=== PATIENT | female | born 1955 | race Hispanic/Latino ===

== ENCOUNTER 2017-05-02 13:19 | Emergency (ER) | payer OTHER ==
[2017-05-02 13:26] VITALS: BP 135/79; PULSE 72; RESP 18; TEMP 98.2; O2SAT 100
--- NOTE | 2017-05-02 14:00 | ED PDOC ---
HPI: General Adult Time Seen by Provider: 05/02/17 13:25 Chief Complaint (Nursing): Back Pain Chief Complaint (Provider): low back pain, weakness of legs History Per: Patient, EMS Additional Complaint(s): 61-year-old female with history of lower back pain presents to emergency Department with pain to lower back and weakness of bilateral lower extremities 1 week. Patient states she is prescribed Xanax daily for muscle spasms but has been off of this medication for 1 week. She has had multiple surgeries to lower back in the past to correct cord compression. She states she has fecal incontinence at baseline daily for the past several years but today presents with new onset weakness to legs. Patient tried to stand up this morning and states that her knees buckled on her. After her knees buckled she was unable to stand and walk. She does state she has had difficulty walking for the past week but it got worse today. Patient is not sure if her current symptoms are related to the fact that she has not taken her Xanax in 1 week. She normally takes a 2 mg tablet once per day. She denies any urinary incontinence or other urinary symptoms. No fever or chills. Past Medical History Reviewed: Historical Data, Nursing Documentation, Vital Signs Vital Signs: Last Vital Signs Temp 98.2 F 05/02/17 13:21 Pulse 72 05/02/17 13:21 Resp 18 05/02/17 13:21 BP 135/79 05/02/17 13:21 Pulse Ox 100 05/02/17 15:11 - Medical History PMH: No Chronic Diseases - Surgical History Surgical History: Back Surgery (several back surgeries in the past) - Family History Family History: States: No Known Family Hx - Home Medications Home Medications: Ambulatory Orders Medication Instructions Recorded ALPRAZolam [Xanax] 2 mg PO DAILY #4 tab 05/02/17 Nitrofurantoin Macrocrystals 100 mg PO BID #14 tab 05/02/17 [Macrobid] - Allergies Allergies/Adverse Reactions: Allergies Allergy/AdvReac Type Severity Reaction Status Date / Time meperidine [From Demerol] Allergy ANAPHYLAXIS Verified 05/02/17 13:21 Review of Systems ROS Statement: Except As Marked, All Systems Reviewed And Found Negative Constitutional: Negative for: Fever Respiratory: Negative for: Shortness of Breath Gastrointestinal: Positive for: Other (stool incontinence, daily for several years). Negative for: Nausea, Vomiting Genitourinary Female: Negative for: Dysuria Neurological: Positive for: Weakness (of both legs). Negative for: Headache, Dizziness Physical Exam - Reviewed Nursing Documentation Reviewed: Yes Vital Signs Reviewed: Yes - Physical Exam Appears: Positive for: Well, Non-toxic, No Acute Distress Skin: Negative for: Rash Eye Exam: Positive for: Normal appearance Cardiovascular/Chest: Positive for: Regular Rate, Rhythm Respiratory: Positive for: Normal Breath Sounds Gastrointestinal/Abdominal: Positive for: Soft. Negative for: Tenderness, Distended, Guarding, Rebound Back: Positive for: Vertebral Tenderness (diffuse to lower lumbar region). Negative for: L CVA Tenderness, R CVA Tenderness Rectal: Positive for: Deferred Extremity: Positive for: Other (normal strength to bilateral lower extremities) Neurologic/Psych: Positive for: Alert, Oriented, Gait (unable to assess) - Laboratory Results Result Diagrams: 05/02/17 14:00 05/02/17 14:00 - ECG O2 Sat by Pulse Oximetry: 100 Pulse Ox Interpretation: Normal Medical Decision Making Medical Decision Makin61 year old with low back pain and leg weakness Plan: CBC CMP UA PO xanax PO tylenol MRI LS Spine Narcotic rx history reviewed on [email or web address]. Patient last filled rx 120 2 mg xanax tabs on 02/05/17. She was given refill of this med but when she went to obtain the refill last week, the pharmacy would not give it to her so she has not taken the med in over one week. 2 mg PO dose given in ED. Patient is aware of MRI results. Patient able to walk with steady gait and states she feels better after meds given in ED. Patient given copy of MRI report and MRI on disc and was instructed to follow-up with her private physician. She states she wishes to follow up with the surgeon who did her previous back surgeries. Patient also has UTI and was given rx macrobid. Disposition - Clinical Impression Clinical Impression: Weakness of both legs, Lumbar radiculopathy, Urinary tract infection - Patient ED Disposition Is Patient to be Admitted: No Counseled Patient/Family Regarding: Studies Performed, Diagnosis, Need For Followup, Rx Given - Disposition Referrals: [facility] [Outside] Disposition: Routine/Home Disposition Time: 16:49 Condition: IMPROVED Additional Instructions: Take rx meds as directed. Follow up COLT with your private physician. Prescriptions: ALPRAZolam [Xanax] 2 mg PO DAILY #4 tab Nitrofurantoin Macrocrystals [Macrobid] 100 mg PO BID #14 tab Instructions: Leg Pain (ED), Lumbar Radiculopathy (ED), Urinary Tract Infection in Women (ED) Forms: [employer] (Czech) Results - Lab Results Lab Results: 05/02/17 05/02/17 05/02/17 14:10 14:00 14:00 WBC 7.0 RBC 4.44 Hgb 13.9 Hct 40.9 MCV 92.2 MCH 31.4 H MCHC 34.0 RDW 13.8 Plt Count 266 MPV 7.5 Neut % (Auto) 54.2 Lymph % (Auto) 36.9 [place]rack[place] % (Auto) 6.5 Eos % (Auto) 1.6 Baso % (Auto) 0.8 Neut # 3.8 Lymph # 2.6 [place]rack[place] # 0.5 Eos # 0.1 Baso # 0.1 Sodium 144 Potassium 4.4 Chloride 106 Carbon Dioxide 24 Anion Gap 18 BUN 15 Creatinine 0.8 Est GFR ( Amer) > 60 Est GFR (Non-Af Amer) > 60 Random Glucose 103 Calcium 9.3 Total Bilirubin 0.9 AST 36 ALT 37 Alkaline Phosphatase 75 Total Protein 7.7 Albumin 4.5 Globulin 3.2 Albumin/Globulin Ratio 1.4 Urine Color Yellow Urine Clarity Slighty-cloudy Urine pH 7.0 Ur Specific [place] 1.017 Urine Protein Negative Urine Glucose (UA) Neg Urine Ketones Negative Urine Blood Negative Urine Nitrate Negative Urine Bilirubin Negative Urine Urobilinogen 2.0 H Ur Leukocyte Esterase Trace Urine RBC (Auto) 3 Urine Microscopic WBC 10 H Ur Squamous Epith Cells 5 Urine Bacteria Rare
[2017-05-02 14:08] LABS: BASO # 0.1 K/uL (0.0-0.2); BASO % 0.8 % (0.0-2.0); EOS # 0.1 K/uL (0.0-0.7); EOS % 1.6 % (0.0-4.0); HEMATOCRIT 40.9 % (34.0-47.0); LYMPH # 2.6 K/uL (1.0-4.3); LYMPH % 36.9 % (20.0-40.0); MEAN CELL VOLUME 92.2 fl (81.0-99.0); MEAN CORPUSCULAR HEMOGLOBIN 31.4 pg (27.0-31.0); MEAN PLATELET VOLUME 7.5 fl (7.2-11.7); MONO # 0.5 K/uL (0.0-0.8); MONO % 6.5 % (0.0-10.0); NEUT # 3.8 K/uL (1.8-7.0); NEUT % 54.2 % (50.0-75.0); NRBC % 0.1 % (0.0-0.0); RED CELL DISTRIBUTION WIDTH 13.8 % (11.5-14.5)
[2017-05-02 14:19] LABS: RBC URINE 3 /hpf (0-3); URINE BACTERIA RARE (<OCC); URINE BILIRUBIN NEGATIVE (NEGATIVE); URINE BLOOD NEGATIVE (NEGATIVE); URINE COLOR YELLOW (YELLOW); URINE GLUCOSE (UA) NEG (Normal); URINE KETONE NEGATIVE (NEGATIVE); URINE LEUKOCYTE ESTERASE TRACE Leu/uL (Negative); URINE PROTEIN NEGATIVE (NEGATIVE)
[2017-05-02 14:20] LABS: WBC URINE 10 /hpf (0-5)
[2017-05-02 14:35] LABS: ALB/GLOB RATIO 1.4 (1.0-2.1); ALKALINE PHOSPHATASE 75 U/L (38-126); ALT/SGPT 37 U/L (9-52); AST/SGOT 36 U/L (14-36); BILIRUBIN,TOTAL 0.9 mg/dl (0.2-1.3); BLOOD UREA NITROGEN 15 mg/dl (7-17); CALCIUM 9.3 mg/dL (8.4-10.2); CARBON DIOXIDE 24 mmol/L (22-30); CHLORIDE 106 mmol/L (98-107); GFR AFRICAN-AMERICAN > 60; GLUCOSE,RANDOM 103 mg/dL (65-105); SODIUM 144 mmol/l (132-148); TOTAL PROTEIN 7.7 G/DL (6.3-8.2)
[2017-05-02 14:37] LABS: POTASSIUM 4.4 MMOL/L (3.6-5.0)
--- NOTE | 2017-05-02 17:56 | MRI ---
PROCEDURE: MR LUMBAR SPINE WITHOUT CONTRAST HISTORY: low back pain, leg weakness, cannot walk COMPARISON: None available. TECHNIQUE: Multiecho multiplanar sequences were performed through the lumbar spine without the use of intravenous contrast. FINDINGS: There is mild dextroscoliosis at the mid lumbar spine. Vertebral body heights are preserved. Marrow signal unremarkable. Conus medullaris unremarkable at the level of T12-L1 Fatty infiltration at the paraspinal muscles seen of uncertain etiology. T12-L1: No disc herniation, spinal canal stenosis or neural foraminal narrowing. L1-2: No disc herniation, spinal canal stenosis or neural foraminal narrowing. L2-3: There is a small disc bulging seen without evidence of significant spinal or neural foraminal narrowing. Moderate degenerative disc changes are noted. L3-4: Moderate degenerative disc changes are noted. Small osteophyte disc bulge complex seen without evidence of significant spinal or neural foraminal narrowing. L4-5: No disc herniation, spinal canal stenosis or neural foraminal narrowing. L5-S1: Small disc bulge osteophyte complex without evidence of significant spinal or neural foraminal narrowing. OTHER FINDINGS: None. IMPRESSION: Moderate degenerative disc changes. Multilevel small osteophyte disc bulge complex noted without significant spinal or neural foraminal narrowing. No evidence of acute fracture or destructive bony lesion. Preliminary report was submitted by [facility] .
== END 2017-05-02 16:59 | disposition home or self-care (01) ==
LOC: H.ER 13:19
DX: N39.0 Urinary tract infection, site not specified (principal); M54.16 Radiculopathy, lumbar region; M62.81 Muscle weakness (generalized)